=== PATIENT | female | born 1955 | race Caucasian/White ===

== ENCOUNTER 2019-09-30 10:45 | Emergency (ER) | payer MEDICARE, OTHER ==
[~2019-09-30] VITALS: Ht 157.5 cm; Wt 46.2 kg
--- NOTE | 2019-09-30 11:13 | NUR ---
PT HERE WITH C/O GENERALIZED FATIGUE, PRODUCTIVE COUGH, INTERMITTENT SOB X 3-4 DAYS. PT STATES "I MAY HAVE HAD A FEVER LAST NIGHT BUT I DIDN'T CHECK. PT STATES SHE TOOK A DOSE OF TYLENOL THIS AM AND IT "MIGHT HAVE HELPED." PT AAO X 4, NAD, ROOM AIR, CALL LIGHT WITHIN REACH. PT DRESSED IN GOWN AND ATTACHED TO MONITOR, SIDERAIL X [address] NO COUGH OR SOB NOTED AT THIS TIME, PT DOES STATE IT IS WORSE WITH MOVEMENT.
--- NOTE | 2019-09-30 11:15 | NUR ---
AT BEDSIDE FOR EXAM.
--- NOTE | 2019-09-30 11:28 | NUR ---
PT TO RADIOLOGY AMBULATORY WITH HOUSEKEEPING ASSOCIATE, EDUCATED ON NEED FOR URINE SAMPLE AND VERBALIZED UNDERSTANDING.
--- NOTE | 2019-09-30 11:33 | NUR ---
PT BACK FROM XRAY.
--- NOTE | 2019-09-30 11:34 | NUR ---
LAB AT BEDSIDE.
--- NOTE | 2019-09-30 11:51 | NUR ---
UA COLLECTED AND SENT TO LAB.
[2019-09-30 12:08] LABS: MEAN CORPUSCULAR HEMOGLOBIN 32.3 pg (27.0-34.8); MEAN CORPUSCULAR HGB CONC 33.9 g/dL (32.4-35.8); MEAN CORPUSCULAR VOLUME 95.3 fL (80-100); MEAN PLATELET VOLUME 7.7 fL (7.4-10.4); PLATELET COUNT 405 x10^3/uL (130-400); RED BLOOD COUNT 4.34 x10^6/uL (3.82-5.3); RED CELL DISTRIBUTION WIDTH 14.3 % (9.6-15.2)
[2019-09-30 12:17] LABS: ALBUMIN 2.8 g/dL (3.4-5.0); ANION GAP 7 mmol/L (5-15); CHLORIDE 102 mmol/L (98-107)
[2019-09-30 12:23] LABS: ALANINE AMINOTRANSFERASE 22 U/L (12-78); ALKALINE PHOSPHATASE 100 U/L (45-117); BILIRUBIN,TOTAL 0.5 mg/dL (0.2-1.0); CREATININE 0.89 mg/dL (0.55-1.02); TOTAL PROTEIN 7.3 g/dL (6.4-8.2); TROPONIN I < 0.015 ng/mL (0.000-0.045)
[2019-09-30 12:33] LABS: BASOPHILS # (AUTO) 0.03 x10^3/uL (0-0.1); BASOPHILS % (AUTO) 0 % (0-1); EOSINOPHILS # (AUTO) 0.03 x10^3/uL (0-0.4); EOSINOPHILS % (AUTO) 0 % (1-7); LYMPHOCYTES # (AUTO) 1.55 x10^3/uL (1-3.4); LYMPHOCYTES % (AUTO) 10 % (22-44); MD SCAN; MONOCYTES # (AUTO) 1.66 x10^3/uL (0.2-0.8); MONOCYTES % (AUTO) 11 % (2-9); NEUTROPHILS # (AUTO) 12.23 x10^3/uL (1.8-6.8); NEUTROPHILS % (AUTO) 79 % (42-75)
[2019-09-30 12:41] LABS: MICROSCOPIC NOT IND
[2019-09-30 12:46] LABS: CULTURE INDICATED? NO
[2019-09-30 13:32] VITALS: BP 134/90
--- NOTE | 2019-09-30 13:58 | NUR ---
Patient/Caregiver given discharge instructions and they have confirmed that they understand the instructions. Patient ambulatory with steady gait.
== END 2019-09-30 14:00 | disposition home or self-care (01) ==
LOC: ED 12:22
DX: J15.9 Unspecified bacterial pneumonia (principal); Z87.891 Personal history of nicotine dependence
CPT/HCPCS: 36415; 71046; 80053; 81003; 84443; 84484; 85025; 93005; 99284